=== PATIENT | female | born 1980 | race Caucasian/White ===

== ENCOUNTER 2019-04-19 18:29 | Emergency (ER) | payer MEDICAID, SELFPAY ==
[2019-04-19 18:30] VITALS: BP 123/68; PULSE 84; RESP 18; TEMP 36.6; O2SAT 96; BMI 36.0
--- NOTE | 2019-04-19 18:56 | CT_ITS ---
STUDY: CT ABDOMEN AND PELVIS WITH CONTRAST REASON FOR EXAM: Female, 39 years old. Abdominal pain RADIATION DOSAGE (If Supplied By Facility): CTDIvol = ( 26.22 ) mGy, DLP = ( 1126.21 ) mGycm TECHNIQUE: CT images were obtained from the dome of the diaphragm to the symphysis pubis without oral contrast. 100ML IV Isovue 300 was administered. Sagittal and coronal images were reconstructed. Individualized dose optimization techniques were used for this CT. COMPARISON: None. FINDINGS: The visualized lung bases are unremarkable. The visualized portions of the heart are within normal limits. Normal liver. Normal gallbladder and extrahepatic biliary system. Normal spleen. Normal pancreas. Normal bilateral adrenal glands. Normal right kidney. Normal left kidney. There is no intestinal obstruction. The colon is filled with a large amount of dehydrated stool, a finding associated with both dehydration and decreased colonic motility. Appendix is normal. Normal abdominal aorta. Normal inferior vena cava. Normal retroperitoneum. Normal urinary bladder. The right ovary is enlarged but difficult to evaluate due to the intrinsic limitations of CT technique. Normal abdominal wall. Normal osseous structures. CT/Abdomen/Pelvis W IV Cont ONLY IMPRESSION: 1. Unremarkable urinary system. 2. No acute abdominal findings. 3. Decreased colonic motility and/or dehydration or combination of the 2. Electronically Signed: Tiffanie Avery, at 20:46 EDT Tel , Service support ,
--- NOTE | 2019-04-19 19:00 | ED.VISSUMM ---
- ER Visit Summary Date of Service: 04/19/19 Chief Complaint: Foul-smelling urine and abdominal bloating for the last 3 years. History of Present Illness: The patient is a 39 F Pap smear history of prior D&C tubal ligation tonsillectomy. Patient is G4, P3 Ab0 AB 1 with that being a miscarriage. History of hypothyroidism. Since her last 3 years she has had chronically foul-smelling urine. Was treated for UTI. But states that this is been a chronic problem and never seems to get better. She also has been having abdominal bloating. Denies any weight loss. Denies any urinary retention. No melena. Last menstrual period was a week ago and states she has had tubal ligation. Physical Examination: Middle-aged female no acute distress. Vital signs are stable afebrile. H EENT exam unremarkable. Neck nontender. Lungs clear to auscultation bilaterally. Heart regular rhythm no murmur. Abdomen soft. Nontender. Nondistended. She appears to be mildly overweight. Normal bowel sounds. No peritoneal signs. No joint no reproducible tenderness. Carrying extra weight in her mid to lower abdomen. She states for her this is bloating. She is moving all 4 extremities. Neurovascular intact. She is trace edema bilaterally. Calves are nontender neurologically she is awake and alert. Back is nontender. Test Results: CBC shows a white count of 7. Hemoglobin 15. Electrolytes are normal. Gap of 4. Creatinine 1. Liver enzymes are normal lipase normal. Urine is negative except for 4+ bacteria but there is no whites, red cells or nitrates. A culture was sent. Serum test negative. CAT scan shows a normal appendix slightly enlarged right ovary and significant amounts of increased stool read both by myself and the radiologist. Emergency Department Course and Treatment: Patient with multiple complaints. He has a benign abdominal exam. Screening labs and a CAT scan of her abdomen will be obtained. Repeat exam patient is doing well 22:10 PM. Discussed all test results with her and family. They are going to be discharged to home. She will be treated with magnesium citrate for constipation. Her repeat abdominal exam is benign. Treatment Plan: Exam citrate. Stool softener. Follow-up with primary care doctor. Disposition: Discharge Impression: Abdominal pain secondary to constipation This note was generated with [employer] software. It may contain incorrect words, spelling, and punctuation that were not noted in review of the chart prior to signing ED Disposition - Plan for ED Patient: Referrals: [facility] Doctor,Out of [Primary Care Provider] -
[2019-04-19] MEDS: 0.9% Normal Saline 1,000 ML 125 ML IV (19:11)
[2019-04-19 19:24] LABS: Mucous, Urine 0 SEEN /hpf (<or=2+); Red Blood Cells-Urine 0 SEEN /hpf (0-5)
[2019-04-19 19:26] LABS: Color, Urine Yellow (Yellow); Glucose, Dipstick Normal (Normal); Ketone-Dipstick Negative (Negative); Leukocyte Esterase-Dipstick 100 /ul (Negative); Nitrite-Dipstick Negative (Negative); Occult Blood-Urine 10 /ul (Negative); Protein-Dipstick Negative (Negative); Urine Bilirubin Dipstick Negative (Negative); Urine Clarity Cloudy (Clear); Urine Urobilinogen Normal (Normal)
[2019-04-19] MEDS: Morphine 4 MG/ML Syringe IV (19:26)
[2019-04-19] MEDS: Ondansetron 4 MG/2 ML Vial IV (19:26)
[2019-04-19 19:32] LABS: Bacteria 4+ /hpf (None Seen); Hyaline Cast 0-5 SEEN /lpf (0-5); Squamous Epithelial Cells - UA 0-5 SEEN /hpf (5-10)
[2019-04-19 19:35] LABS: White Blood Cells 0-5 SEEN /hpf (0-5)
[2019-04-19 19:35] LABS: Absolute Lymphocyte Count 3.22 X10^3/ul (0.83-4.51); Absolute Neutrophil Count 3.3 X10^3/uL (2.0-7.7); Basophil# 0.04 X10^3/uL; Basophil% 0.5 % (0-1); Eosinophil# 0.55 X10^3/uL; Eosinophils% 7.1 % (0-5); Hematocrit 44.1 % (37-47); Hemoglobin 15.2 g/dl (12.0-15.0); Lymphocyte # 3.22 X10^3/ul (4.0); Lymphocyte % 41.8 % (19-41); Mean Corp Hgb Conc 34.5 g/gl (32-36); Mean Corpuscular Hgb 29.6 pg (27.0-32.0); Mean Corpuscular Volume 85.8 fL (81-99); Mean Platelet Vol. 9.6 fl (6.2-12.0); Monocyte# 0.57 X10^3/uL; Monocyte% 7.4 % (0-10); Neutrophil # 3.31 X10^3/uL (2.7-7.7); Neutrophil % 43.1 % (47-70); POSITIVE COUNT NO; POSITIVE DIFFERENTIAL NO; POSITIVE MORPHOLOGY NO; Platelet Count 207 K/mm3 (150-450); RBC Distribution Width CV 13.9 % (11.6-14.6); RBC Distribution Width SD 43.2 fl (35.1-43.9); Red Blood Count 5.14 M/mm3 (4.2-5.4); White Blood Count 7.7 K/mm3 (4.4-11.0)
[2019-04-19 20:01] LABS: AST(SGOT) 24 U/L (15-37); Alanine Aminotransfer ALT/SGPT 25 U/L (13-56); Albumin, Serum 3.9 g/dL (3.2-5.0); Alkaline Phosphatase 59 U/L (45-117); Anion Gap 4 (5-15); BUN 20 mg/dL (7-18); BUN/Creat Ratio 19.8 RATIO (10-20); Bilirubin, Direct 0.05 mg/dL (0.00-0.30); Calcium,Total 8.7 mg/dL (8.5-10.1); Chloride 105 mmol/L (98-107); Creatinine, Serum 1.01 mg/dL (0.55-1.02); EST Glomerular Filtration Rate 65 mL/min (>60); Est Glom Filt Rate - Afr Amer 78 mL/min (>60); Estimated Creatinine Clearance 63.94 ml/min; Globulin 2.9 g/dL (2.2-4.2); Glucose 94 mg/dL (74-106); Lipase 105 U/L (73-393); Potassium 4.7 mmol/L (3.5-5.1); Protein, Total 6.8 g/dL (6.4-8.2); Sodium Level 135 mmol/L (136-145)
[2019-04-19 20:07] LABS: Internal QC Validated? YES +Cl - CLEAR BKGD; Pregnancy, Serum, hCG Quali. NEGATIVE Negative
--- NOTE | 2019-04-19 20:56 | ED.RN ---
SPOKE WITH DR. MONACO ABOUT PT REQUESTING MORE PAIN MEDICATION. DR. MONACO STATES HE WILL GO SPEAK WITH HER. NO NEW ORDERS GIVEN AT THIS TIME.
[2019-04-19 21:17] VITALS: BP 124/75; PULSE 74; RESP 18; O2SAT 97
--- NOTE | 2019-04-19 22:13 | ED.DEP ---
ED Disposition - Plan for ED Patient: Disposition: Home or Assisted Living Instructions: CONSTIPATION (Adult) Referrals: [facility],Out of [Primary Care Provider] - 1-2 Weeks Additional Instructions: Magnesium citrate to help with the constipation. Plenty of fluids, prune juice, fruits, vegetables and fiber.
[2019-04-19] MEDS: Magnesium Citrate 300 ML PO (22:19)
[2019-04-19 22:20] VITALS: RESP 16
== END 2019-04-19 22:21 | disposition home or self-care (01) ==
PROVIDERS: Emergency Provider Emergency Medicine
DX: K59.00 Constipation, unspecified (principal); R10.9 Unspecified abdominal pain; R60.0 Localized edema; N83.8 Other noninflammatory disorders of ovary, fallopian tube and broad ligament; R11.2 Nausea with vomiting, unspecified; R19.7 Diarrhea, unspecified; R30.0 Dysuria; R82.998 Other abnormal findings in urine; E03.9 Hypothyroidism, unspecified; J45.909 Unspecified asthma, uncomplicated; G40.909 Epilepsy, unspecified, not intractable, without status epilepticus; Z87.440 Personal history of urinary (tract) infections; Z79.899 Other long term (current) drug therapy; Z72.0 Tobacco use
CPT/HCPCS: 74177; 80048; 80076; 81001; 83690; 84703; 85025; 87086; 87088; 87186; 96361; 96374; 96375; 99283; J7030; Q9967; J2405

== ENCOUNTER 2019-05-16 15:15 | Emergency (ER) | payer MEDICAID, SELFPAY ==
[2019-05-16 15:17] VITALS: BP 115/76; PULSE 88; RESP 14; TEMP 36.7; O2SAT 97; BMI 32.5
[2019-05-16] MEDS: Morphine 4 MG/ML Syringe IM (16:11)
--- NOTE | 2019-05-16 16:20 | RAD_ITS ---
STUDY: X-RAY - LUMBAR SPINE REASON FOR EXAM: Female, 39 years old. Low back pain TECHNIQUE: 3 view(s) of the lumbar spine were obtained. COMPARISON: None FINDINGS: Normal lumbar lordosis. There is no substantial scoliosis. There is a normal alignment of the vertebrae. Normal vertebral bodies and endplates. Normal disc space heights. The soft tissue structures are unremarkable. RAD/Lumbar Spine 2 or 3 Views IMPRESSION: Normal x-ray examination of the lumbar spine. Electronically Signed: Alejo Roger DO at 16:58 EDT Tel , Service support ,
--- NOTE | 2019-05-16 16:27 | ED.DCSUM_ITS ---
- ER Visit Summary Date of Service: 05/16/19 Chief Complaint: Back pain History of Present Illness: The patient is a 39 F who presents with back pain for the past 2 months. Patient states the pain is over her lower back. Patient states she has a history of chronic lower extremity pain. Patient states that her pain in her back is gotten progressively worse. Patient describes as aching. Patient states her pain is worse with movement and ambulation. Patient states nothing seems to help. Patient admits to occasional intermittent numbness and tingling in her lower legs. Patient denies any abdominal pain. Patient denies any bowel or bladder changes. Patient denies any saddle anesthesia. Physical Examination: Vital signs are stable. Patient is afebrile. Patient is in no acute distress. Musculoskeletal exam reveals tenderness over the lower lumbar spine and paraspinal muscles. There is no bony crepitance or step-off. There is no edema or ecchymosis noted. There is some mild tenderness over the right hip. There is no deformity. There is good range of motion of the right hip. There is no calf tenderness noted. Pedal pulses are equal bilaterally. Strength is 5/5 bilateral knee upper and lower extremities. There are no sensory deficits noted. Test Results: X-rays of the lumbar spine were obtained. There is no acute fracture or dislocation noted. There is no spondylolisthesis or spondylolysis noted. Emergency Department Course and Treatment: Patient was given an injection of morphine here. Patient noted some redness to her chest after this. Patient was offered Benadryl but does not want to take that because she says it makes her restless. Patient was instructed to follow-up with her primary care physician in 3 to 5 days. Patient understood and was agreeable with the plan. All questions were answered. Disposition: Discharge home Impression: Acute low back pain This note was generated with [employer] dictation software. It may contain incorrect words, spelling, and punctuation that were not noted in review of the chart prior to signing ED Disposition - Plan for ED Patient: Disposition: Home or Assisted Living Diagnosis: Acute low back pain Instructions: BACK PAIN (Acute or Chronic) Referrals: [facility] Doctor,Out of [Primary Care Provider] - 5-7 Days
== END 2019-05-16 17:25 | disposition home or self-care (01) ==
PROVIDERS: Emergency Provider Emergency Medicine
DX: M54.5 Low back pain (principal); E03.9 Hypothyroidism, unspecified; M19.90 Unspecified osteoarthritis, unspecified site; G40.909 Epilepsy, unspecified, not intractable, without status epilepticus; Z79.899 Other long term (current) drug therapy; Z72.0 Tobacco use
CPT/HCPCS: 72100; 96372; 99282

== ENCOUNTER 2019-06-07 15:44 | Emergency (ER) | payer MEDICAID, SELFPAY ==
[2019-06-07 15:45] VITALS: BP 123/89; PULSE 96; RESP 17; TEMP 36.4; O2SAT 99; BMI 34.7
--- NOTE | 2019-06-07 16:07 | EKG12_ITS ---
Test Reason : CP Blood Pressure : / mmHG Vent. Rate : 079 BPM Atrial Rate : 079 BPM P-R Int : 140 ms QRS Dur : 076 ms QT Int : 358 ms P-R-T Axes : 022 038 022 degrees QTc Int : 410 ms Normal sinus rhythm with sinus arrhythmia Normal ECG Confirmed by EMIL GOSS, MILENA ([id number]), supervising editor news reel FANNIE RAMIREZ ([id number]) on 06/10/2019 11:04:24 AM Referred By: Confirmed By:MILENA STEIN MD
[2019-06-07] MEDS: 0.9% Normal Saline 1,000 ML 1000 ML IV (16:21)
--- NOTE | 2019-06-07 16:21 | ED.VIS.CHEST ---
History of Present Illness Chief Complaint: Chest Other Informant: Patient Onset: Month(s) - 3 months Activity at onset: Light Activity Timing: Continuous Quality: Sharp, Stabbing Location: Right Chest, Left Chest Current Severity: Severe Maximum Severity: Severe Worsened By: Movement of Arm, Movement of Torso, Palpation, Breathing Relieved By: Nothing Associated Symptoms: Dyspnea, Cough Narrative: 39-year-old female history of seizures, migraine headaches, fibromyalgia, presents to the emergency department with bilateral chest pain. Is been ongoing for 3 months. It is constant. He is it is sharp. Worse with movement palpation coughing and deep breathing. It is not exertional. She is not short of breath. She is not lightheaded or dizzy. She has no cough or hemoptysis. No recent travel or surgery. No history of DVT or PE. No leg pain or swelling. She is not on oral control. She is currently being worked up as an outpatient for lupus and other similar disorders. She has been having this pain now for a few months recently placed on prednisone by her family physician without improvement. Prior Similar Symptoms: Yes Recent Illness/Hospitalization: No Past Medical History - Allergies and Home Meds Allergies/Adverse Reactions: Allergies ketorolac [From Toradol] Allergy (Verified 06/07/19 15:44) Rash metoclopramide [From Reglan] Allergy (Verified 06/07/19 15:44) Other RESTLESS promethazine [From Phenergan] Allergy (Verified 06/07/19 15:44) Other RESTLESS Sulfa (Sulfonamide Antibiotics) Allergy (Verified 06/07/19 15:44) Rash Primary Care Physician: [facility] ,Out of [Primary Care Provider] - Prior records reviewed: Yes Past Medical History: - - Migraines, seizures, fibromyalgia, hypothyroidism Surgical History: tonsillectomy Smoking Status: Current every day smoker Review of Systems All systems negative except as indicated General: Denies: Chills, Fever Cardiovascular: Reports: Chest pain Physical Exam Vital Signs/Narrative: Vital Signs Temp Pulse Resp BP Pulse Ox 06/07/19 15:45 97.6 F L 96 17 123/89 H 99 Inital Vital Signs reviewed: Yes General: Well nourished, Well developed, No Acute Distress Head: Normocephalic, Atraumatic Eyes: Perrl, EOMI ENT: Moist mucous membranes Neck: Supple, Nontender Cardiovascular: Regular rate, Regular rhythm Respiratory: No distress, CTA bilaterally, Chest tenderness - Reproducible musculoskeletal chest pain bilateral chest wall superior and above both breasts. Breasts are normal in appearance. No crepitus skin changes or step-off deformities are palpated. Abdomen: Soft, Nontender, Nondistended, Normal bowel sounds, No masses Back: Nontender, Normal Inspection Extremities: Nontender, No edema Skin: Normal color, No rash Neurological: Alert, Oriented x3 Diagnostic/Tx/Re-eval Chest X-Ray - ED: 2 View, Read by ED Physician, No Acute Disease - Rhythm Strip Rhythm Strip: Sinus Rhythm Rate: 80 Ectopy: None - EKG Initial EKG Interpretation: Sinus Rhythm, No Acute Injury Pattern Prior: No Prior - Medical Decision Making EKG was normal sinus rhythm rate of [address] segment or T wave changes. Normal intervals no ectopy. No previous EKG is available for comparison. CBC, BMP unremarkable. Troponin is negative. D-dimer negative. ESR negative. Chest x-ray negative, interpreted by the emergency physician. Patient heart score is 1. She is had this pain for 3 months. At this time we feel she is safe for discharge. We feel it is likely musculoskeletal in nature. She will continue to follow-up as an outpatient with her family physician as well as rheumatology for further work-up for possible etiologies. She is agreeable with plan of care and all questions answered. Discharged ED Disposition - Plan for ED Patient: Disposition: Home or Assisted Living Diagnosis: Musculoskeletal chest pain Instructions: CHEST PAIN, NonCardiac Prescriptions: Hydrocodone Bitart/Apap 5-325 [[place] 5MG-325MG] 1 tab PO Q6H PRN PRN 3 Days #10 tab PRN Reason: Pain Prescription Printed Referrals: [facility] Doctor,Out of [Primary Care Provider] -
--- NOTE | 2019-06-07 16:40 | RAD_ITS ---
STUDY: X-RAY CHEST REASON FOR EXAM: Female, 39 years old. Sharp pain chest pain TECHNIQUE: PA and lateral views of the chest. COMPARISON: Lung bases April 19, [address] scan of the abdomen and pelvis FINDINGS: There is minimal interstitial prominence in the right middle lobe. This is similar to the diesel electrician image for the April 19, 2019 CT scan abdomen. There is no demonstrated pleural abnormality. Normal size heart. Normal mediastinum and viktoria. Normal visualized pulmonary arteries. Normal visualized aortic arch and descending thoracic aorta. Normal visualized thoracic spine. Normal visualized ribs, clavicles, and shoulders. There is no demonstrated abnormality of the visualized soft tissue structures of the upper abdomen. RAD/Chest PA and Lateral IMPRESSION: No demonstrated acute cardiopulmonary process. Electronically Signed: Evy Parra MD at 17:06 EDT Tel , Service support ,
[2019-06-07 16:48] LABS: Absolute Lymphocyte Count 3.02 X10^3/uL (0.83-4.51); Basophil# 0.06 X10^3/uL; Basophil% 0.7 % (0-1); Eosinophil# 0.43 X10^3/uL; Eosinophils% 5.3 % (0-5); Hematocrit 45.1 % (37-47); Hemoglobin 15.4 g/dL (12.0-15.0); Lymphocyte # 3.02 X10^3/ul (4.0); Lymphocyte % 37.3 % (19-41); Mean Corp Hgb Conc 34.1 g/dL (32-36); Mean Corpuscular Hgb 30.1 pg (27.0-32.0); Mean Corpuscular Volume 88.3 fL (81-99); Mean Platelet Vol. 9.2 fl (6.2-12.0); Monocyte# 0.55 X10^3/uL; Monocyte% 6.8 % (0-10); NRBC Flagged by Analyzer 0 % (0-5); Neutrophil % 49.5 % (47-70); Platelet Count 256 K/mm3 (150-450); RBC Distribution Width CV 12.8 % (11.6-14.6); RBC Distribution Width SD 41.6 fl (35.1-43.9); Red Blood Count 5.11 M/mm3 (4.2-5.4); White Blood Count 8.1 K/mm3 (4.4-11.0)
[2019-06-07 16:54] LABS: Internal QC Validated? YES +Cl - CLEAR BKGD; Pregnancy, Serum, hCG Quali. NEGATIVE Negative
[2019-06-07 16:56] LABS: D-Dimer Quantitative (DVT/PE) < 0.27 FEU/ug/m (0.27-0.49)
[2019-06-07 16:57] LABS: Erythrocyte Sedimentation Rate 3 mm/hr (0-20)
[2019-06-07 17:00] LABS: Anion Gap 6 (5-15); BUN 11 mg/dL (7-18); BUN/Creat Ratio 11.7 RATIO (10-20); Calcium,Total 8.3 mg/dL (8.5-10.1); Chloride 109 mmol/L (98-107); Creatinine, Serum 0.94 mg/dL (0.55-1.02); EST Glomerular Filtration Rate 70 mL/min (>60); Est Glom Filt Rate - Afr Amer 85 mL/min (>60); Glucose 114 mg/dL (74-106); Potassium 3.6 mmol/L (3.5-5.1); Sodium Level 140 mmol/L (136-145)
--- NOTE | 2019-06-07 17:07 | ED.DCSUM_ITS ---
- ER Visit Summary Date of Service: 06/07/19 Chief Complaint: [Chest wall pain] History of Present Illness: The patient is a 39 F [presents to the emergency department with complaint of chest wall pain for the last 3 months or so. Patient describes diffuse soreness and swelling of her chest wall. Patient states the pain is worse with movement and deep breath. She denies any real shortness of breath. She denies any fever. She denies any trauma to her chest wall. She denies recent travel or surgery. Patient does state that she is currently being worked up for autoimmune disorders such as lupus. Patient denies any real cough.] Physical Examination: [HEENT-PERRLA, EOMI. Cranial nerves II through XII grossly intact. TMs clear. Mucous membranes moist. No adenopathy. Cardiovascular-regular rate and rhythm without murmur or ectopy Lungs-clear to auscultation, chest wall stable without crepitus or subcu emphysema. Chest wall-tender to out on palpation. Patient does have a soft tissue mass over the left lower ribs that I feel is consistent with a lipoma as it is in the subcutaneous tissue and freely movable and slightly tender to palpation measuring approximately 2 cm in diameter. Abdomen-normoactive bowel sounds, soft, nontender, no rebound or rigidity, no p eritoneal signs. Extremities-intact ?4, normal range of motion, normal pulses, atraumatic] Test Results: [CBC with a normal. Chemistries unremarkable. D-dimer was normal. hCG was negative. Chest x-ray was normal. Troponin is less than 0.015. Sed rate was normal at 3.] Emergency Department Course and Treatment: [] Treatment Plan: [Advised to use anti-inflammatory such as naproxen or ibuprofen. Patient will be given a prescription for [place] for pain. Patient advised to follow-up with her primary care physician within next 3 to 5 days.] Disposition: [Discharged home in stable condition] Impression: [Chest wall pain] This note was generated with [employer] dictation software. It may contain incorrect words, spelling, and punctuation that were not noted in review of the chart prior to signing ED Disposition - Plan for ED Patient: Disposition: Home or Assisted Living Diagnosis: Musculoskeletal chest pain Instructions: CHEST PAIN, NonCardiac Prescriptions: Hydrocodone Bitart/Apap 5-325 [[place] 5MG-325MG] 1 tab PO Q6H PRN PRN 3 Days #10 tab PRN Reason: Pain Prescription Printed Referrals: [facility] Doctor,Out of [Primary Care Provider] -
== END 2019-06-07 17:39 | disposition home or self-care (01) ==
PROVIDERS: Emergency Provider Physician Assistant Medical
DX: R07.89 Other chest pain (principal); G40.909 Epilepsy, unspecified, not intractable, without status epilepticus; G43.909 Migraine, unspecified, not intractable, without status migrainosus; M79.7 Fibromyalgia; E03.9 Hypothyroidism, unspecified; Z79.899 Other long term (current) drug therapy; F17.200 Nicotine dependence, unspecified, uncomplicated
CPT/HCPCS: 71046; 80048; 84484; 84703; 85025; 85379; 85652; 93005; 96360; 99284; J7030; A4216

== ENCOUNTER → 2019-07-28 14:56 | Outpatient (CLI) | payer MEDICAID, SELFPAY ==
--- NOTE | 2019-07-28 14:59 | RAD_ITS ---
STUDY: X-RAY - LUMBAR SPINE REASON FOR EXAM: Female, 39 years old. Back pain for 17 years. TECHNIQUE: 3 view(s) of the lumbar spine were obtained. COMPARISON: None FINDINGS: Normal lumbar lordosis. There is no substantial scoliosis. There is a normal alignment of the vertebrae. Normal vertebral bodies and endplates. Normal disc space heights. There is no evidence of acute fracture or loss of vertebral axial height. The soft tissue structures are unremarkable. RAD/Lumbar Spine 2 or 3 Views IMPRESSION: Normal x-ray examination of the lumbar spine. Electronically Signed: Juan Aragon DO at 16:09 EDT Tel [phone], Service support ,
--- NOTE | 2019-07-28 15:05 | RAD_ITS ---
STUDY: X-RAY - CERVICAL SPINE REASON FOR EXAM: Female, 39 years old. Neck pain for 17 years. No specific injury. TECHNIQUE: 3 view(s) of the cervical spine were obtained. COMPARISON: None FINDINGS: Normal anterior atlantoaxial articulation. Normal odontoid process. There is straightening of the normal cervical lordosis. Normal vertebral bodies and endplates. Normal disc space heights. There is no evidence of acute fracture or loss of vertebral axial height.. There is normal alignment of the vertebra. The soft tissue structures are unremarkable. RAD/Cerv Spine 2 or 3 Views IMPRESSION: Straightened cervical lordosis which may be positional or due to muscular strain. There is no other abnormality of the cervical spine. Electronically Signed: Juan Aragon DO at 16:11 EDT Tel [phone], Service support ,
== END ==
PROVIDERS: Family Provider Internal Medicine; PCP Internal Medicine; Referring Provider Anesthesiology Pain Medicine; Visit Provider Anesthesiology Pain Medicine
DX: M54.2 Cervicalgia (principal); M54.5 Low back pain
CPT/HCPCS: 72040; 72100

== ENCOUNTER 2019-10-10 11:40 | Emergency (ER) | payer MEDICAID, SELFPAY ==
[2019-10-10 11:41] VITALS: BP 119/91; PULSE 99; RESP 18; TEMP 36.4; O2SAT 98; BMI 33.6
--- NOTE | 2019-10-10 12:37 | ED.VIS.LOWEX ---
History of Present Illness Chief Complaint: Lower Extremity Injury Informant: Patient Occurred: Hours - 1 Context: Sudden Onset - while walking/helping to carry Timing: Continuous Quality of Pain: Aching - and sore Location: both knees anteriorly Current Severity: Moderate Maximum Severity: Severe Worsened by: bending knees, walking Relieved by: remaining still Associated Symptoms: Negative for: Parasthesia, Weakness, Loss of Funtion Narrative: Patient shows me prior x-ray results that show bilateral resting patellar lateral tilt. Today as she was helping to lift something she states simultaneously both of her patella moved laterally, and then crackled back into place, painfully. She describes a history of recurrent subluxation of both patella, and had that happen an hour prior to arrival. She states when this is happened before, she typically has 3 to 4 days of a lot of bilateral knee soreness and is asking for something to help her get through that period of time. She had a GI bleed 3 months ago and states she was advised to avoid all NSAIDs until told otherwise, she states [place] has helped with this in the past. She was prescribed braces for both knees, but when they arrived they were too big and now she is awaiting replacements. She is following with Dr. Nguyễn locally. She is to get physical therapy after the braces come in. - Past Medical History (1) ADD (attention deficit disorder) Status: Chronic (2) Anxiety Status: Chronic Past Medical History - Allergies and Home Meds Allergies/Adverse Reactions: Allergies ketorolac [From Toradol] Allergy (Verified 10/10/19 11:43) Rash metoclopramide [From Reglan] Allergy (Verified 10/10/19 11:43) Other RESTLESS promethazine [From Phenergan] Allergy (Verified 10/10/19 11:43) Other RESTLESS Sulfa (Sulfonamide Antibiotics) Allergy (Verified 10/10/19 11:43) Rash Primary Care Physician: Michelle Serrano MD [Primary Care Provider] - Past Medical History: None Surgical History: tonsillectomy Smoking Status: Current every day smoker Drugs: None Review of Systems Musculoskeletal: Reports: Extremity Pain. Denies: Neck pain, Back pain, Swelling Skin: Denies: Rash, Wounds Neurological: Denies: Headache, Weakness, Numbness Physical Exam Vital Signs/Narrative: Vital Signs Temp Pulse Resp BP Pulse Ox 01/03/20 11:41 97.6 F L 99 18 119/91 H 98 Inital Vital Signs reviewed: Yes - Extremity Exam Right Knee: - - Tenderness anteriorly. No effusion. All ligaments stable with short endpoints and no significant pain or laxity on stressing.. Negative for: Limited ROM Left Knee: - - Tenderness anteriorly. No effusion. All ligaments stable with short endpoints and no significant pain or laxity on stressing.. Negative for: Limited ROM General: Well nourished, Well developed, - - NAD Skin: Normal color, No rash, No Trauma Neurological: Alert, Oriented x3, Cranial nerves II-XII grossly intact, Normal Strength, Normal Sensation Psychological: Normal affect, Normal Mood Diagnostic/Tx/Re-eval - Medical Decision Making Suspect patient had subluxation of her patella bilaterally. No sign of a dislocation or unstable knee, no significant bony tenderness, it is mostly at the lateral aspect of the anterior knee joints. We will give her a short prescription for [place], she has no active prescriptions or recent ones in the past 2 months. ED Disposition - Plan for ED Patient: Disposition: Home or Assisted Living Diagnosis: Recurrent subluxation of patella, left knee, Recurrent subluxation of patella, right knee Instructions: Patellar Dislocation / Subluxation Prescriptions: Hydrocodone Bitart/Apap 5-325 [[place] 5MG-325MG] 1 tablet PO Q6H PRN PRN 3 Days #12 tablet PRN Reason: Pain Transmission Status: Sent to [id number] Referrals: Michelle Serrano MD [Primary Care Provider] - Zen Nguyễn DO [STAFF PHYSICIAN] - 3-5 Days if not improving
[2019-10-10 12:50] VITALS: RESP 18
== END 2019-10-10 12:55 | disposition home or self-care (01) ==
PROVIDERS: Emergency Provider Emergency Medicine; Family Provider Internal Medicine; PCP Internal Medicine
DX: M22.11 Recurrent subluxation of patella, right knee (principal); M22.12 Recurrent subluxation of patella, left knee; F98.8 Other specified behavioral and emotional disorders with onset usually occurring in childhood and adolescence; F41.9 Anxiety disorder, unspecified; F17.200 Nicotine dependence, unspecified, uncomplicated
CPT/HCPCS: 99282

== ENCOUNTER 2019-11-04 11:58 | Emergency (ER) | payer MEDICAID, SELFPAY ==
[2019-11-04 11:59] VITALS: BP 127/87; PULSE 100; RESP 18; TEMP 36.6; O2SAT 100; BMI 34.0
--- NOTE | 2019-11-04 12:25 | ED.VISSUMM ---
- ER Visit Summary Date of Service: 11/04/19 Chief Complaint: Cough with yellow sputum History of Present Illness: The patient is a 39 F history of asthma, hypothyroidism, seizures and prior GI bleed. Patient states she is in physical therapy today and thinks she dislocated her right kneecap which they popped back in place. States that she has had a cough for several days of yellowish sputum. No fever or chills. Patient also states she is having some mild right knee pain she was in physical therapy today and dislocated her kneecap which she is done before. They manually move the back in place. Physical Examination: EENT exam unremarkable. TMs normal. Posterior pharynx moist. No erythema or exudate. No trouble swallowing. No stridor. Neck nontender no lymphadenopathy. Trachea midline. Lungs dry cough. Expiratory wheezing. No rales or rhonchi. Equal symmetrical. Heart regular rhythm rate about 100 no murmur. Abdomen soft nontender normal bowel sounds no peritoneal signs. Extremities moves all 4. Calves are nontender without edema or cords. Neurologically patient is awake alert with no focal motor deficits. She does complain of mild right knee discomfort. There is no significant effusion. Currently there is no dislocation of the kneecap. She is able to flex and extend her right knee. Tendons are intact as are the ligaments. Right foot has normal dorsi plantarflexion, motor strength and sensation. Test Results: Chest x-ray AP lateral view read both myself and the radiologist shows no acute abnormality. Emergency Department Course and Treatment: History and exam are consistent with acute bronchitis with bronchospasm. Patient will be discharged home on prednisone 40 g a day for up to 7 days. She already has an inhaler. [place] p.o. 1 because of her knee discomfort. Treatment Plan: Stop smoking. Prednisone 40 g a day for up to a week. Use your inhaler. Follow-up if not improving or return if worse. Ice to her knee. Disposition: Discharge Impression: Acute viral bronchitis Bronchospasm Tobacco abuse Right knee pain secondary to reported patella dislocation that has resolved This note was generated with [employer] software. It may contain incorrect words, spelling, and punctuation that were not noted in review of the chart prior to signing ED Disposition - Plan for ED Patient: Referrals: Michelle Serrano MD [Primary Care Provider] -
--- NOTE | 2019-11-04 12:26 | RAD_ITS ---
STUDY: X-RAY CHEST REASON FOR EXAM: Female, 39 years old. COUGH AND WHEEZING. TECHNIQUE: PA and lateral views of the chest. COMPARISON: Comparison is made with prior study dated June 07, 2019. FINDINGS: Hyperinflation. Scattered calcified granulomas. The lungs are clear. There is no demonstrated pleural abnormality. Normal size heart. Normal mediastinum and viktoria. Normal visualized pulmonary arteries. Normal visualized aortic arch and descending thoracic aorta. Normal visualized thoracic spine. Normal visualized ribs, clavicles, and shoulders. There is no demonstrated abnormality of the visualized soft tissue structures of the upper abdomen. RAD/Chest PA and Lateral IMPRESSION: No acute abnormality is seen. Electronically Signed: Shamar Colvin, at 12:52 EST , Service support ,
[2019-11-04] MEDS: HYDROcodone Bitartrate/Apap 5/325 Tablet PO (12:50)
[2019-11-04] MEDS: predniSONE 20 MG Tablet 60 MG PO (12:50)
[2019-11-04 12:52] VITALS: BP 127/87; PULSE 100; RESP 18; TEMP 36.6; O2SAT 100
--- NOTE | 2019-11-04 13:16 | ED.DEP ---
ED Disposition - Plan for ED Patient: Disposition: Home or Assisted Living Instructions: BRONCHITIS with Wheezing (Adult) Prescriptions: Prednisone [Deltasone] 40 mg PO DAILY 7 Days tab Prescription Printed Referrals: Michelle Serrano MD [Primary Care Provider] - 3-5 Days if not improving Additional Instructions: Use your inhaler as needed. Prednisone 40 mg a day for 1 week. Absolutely stop smoking !! Ice to your knee. Tylenol for pain. Follow-up if not improving.
[2019-11-04 13:25] VITALS: RESP 16
--- NOTE | 2019-11-04 13:25 | ED.RN ---
REVIEWED D/C INSTRUCTIONS, FOLLOW UP CARE, PRESCRIPTION, AND S/S THAT WOULD WARRANT A RETURN TO THE ED WITH PT. PT VERBALIZED AN UNDERSTANDING AND DENIES FURTHER QUESTIONS FOR THIS RN. PT SKIN P/W/D, RESP EVEN AND UNLABORED, PT A&O X 3, NO DISTRESS NOTED. PT AMBULATED OUT OF ED, GAIT STEADY.
== END 2019-11-04 13:26 | disposition home or self-care (01) ==
PROVIDERS: Emergency Provider Emergency Medicine; PCP Internal Medicine
DX: J20.8 Acute bronchitis due to other specified organisms (principal); M22.01 Recurrent dislocation of patella, right knee; E03.9 Hypothyroidism, unspecified; G40.909 Epilepsy, unspecified, not intractable, without status epilepticus; F17.200 Nicotine dependence, unspecified, uncomplicated
CPT/HCPCS: 71046; 99284

== ENCOUNTER 2019-12-17 18:12 | Emergency (ER) | payer MEDICAID, SELFPAY ==
[2019-12-17 18:14] VITALS: BP 133/89; PULSE 108; RESP 20; TEMP 36.6; O2SAT 98; BMI 37.0
--- NOTE | 2019-12-17 19:29 | ED.VIS.GEN ---
History of Present Illness Chief Complaint: Lower Extremity Injury Informant: Patient Onset: - - Acute on chronic Narrative: Patient presents secondary to bilateral knee pain. She has chronic laxity in her patella bilaterally. She follows with Dr. Nguyễn. She is currently in physical therapy but states it is really not helping. She is helping her mother with some chores around the house and doing increased lifting. She now reports increased pain and swelling over the anterior knees. There is no direct trauma to the knee. She is not able to take anti-inflammatories secondary to a prior GI bleed. She is been taking Tylenol without improvement. I did check an oars report. Last prescription for [place] was November 26 for a short supply. - Past Medical History (1) Asthma Status: Chronic (2) Seizures Status: Chronic (3) Migraine Status: Chronic (4) ADD (attention deficit disorder) Status: Chronic (5) Anxiety Status: Chronic Past Medical History - Allergies and Home Meds Allergies/Adverse Reactions: Allergies ketorolac [From Toradol] Allergy (Verified 12/17/19 18:18) Rash metoclopramide [From Reglan] Allergy (Verified 12/17/19 18:18) Other RESTLESS prochlorperazine [From Compazine] Allergy (Verified 12/17/19 18:18) Rash promethazine [From Phenergan] Allergy (Verified 12/17/19 18:18) Other RESTLESS Sulfa (Sulfonamide Antibiotics) Allergy (Verified 12/17/19 18:18) Rash NSAIDS (Non-Steroidal Anti-Inflamma Adverse Reaction (Verified 12/17/19 18:18) Upset Stomach Primary Care Physician: Michelle Serrano MD [Primary Care Provider] - Prior records reviewed: Yes Surgical History: tonsillectomy Smoking Status: Current every day smoker Review of Systems General: Denies: Chills, Fever Eyes: Denies: Visual changes - bilaterally ENT: Denies: Bilateral ear pain Cardiovascular: Denies: Chest pain Respiratory: Denies: Dyspnea, Cough Gastrointestinal: Denies: Abdominal pain Musculoskeletal: Reports: Swelling, Extremity Pain Skin: Denies: Rash Neurological: Denies: Headache Allergy: Denies: Uticaria Physical Exam Vital Signs/Narrative: Vital Signs Temp Pulse Resp BP Pulse Ox 12/17/19 18:14 97.8 F 108 H 20 H 133/89 H 98 Inital Vital Signs reviewed: Yes General: Well nourished, Well developed ENT: Moist mucous membranes Neck: Supple Cardiovascular: Regular rate, Regular rhythm Respiratory: No distress, CTA bilaterally Abdomen: Soft Extremities: - - Mild tenderness outpatient over the patellar region anteriorly on both right and left knees. She has mild tenderness along the joint lines. No obvious effusion. Good range of motion. Strong distal pulses are noted. No calf tenderness or edema. Diagnostic/Tx/Re-eval Patient presents secondary to bilateral knee pain due to increased activity lately. She is unable to take anti-inflammatories. I did check an oars report. Last prescription for [place] was from mid November. She begin a prescription for 4 tabs only. I advised her that we cannot write narcotics from the emergency room for a chronic medical problem. She is to follow with her primary care physician and Dr. Nguyễn as scheduled. ED Disposition - Plan for ED Patient: Disposition: Home or Assisted Living Diagnosis: Knee pain Prescriptions: Hydrocodone Bitart/Apap 5-325 [[place] 5MG-325MG] 1 tablet PO Q6H PRN PRN 3 Days #4 tablet PRN Reason: Pain Transmission Status: Received by [id number] Referrals: Michelle Serrano MD [Primary Care Provider] - 5-7 Days
[2019-12-17] MEDS: HYDROcodone Bitartrate/Apap 5/325 Tablet PO (19:45)
== END 2019-12-17 19:46 | disposition home or self-care (01) ==
PROVIDERS: Emergency Provider Emergency Medicine; PCP Internal Medicine
DX: M25.562 Pain in left knee (principal); M25.561 Pain in right knee; G40.909 Epilepsy, unspecified, not intractable, without status epilepticus; J45.909 Unspecified asthma, uncomplicated; F41.9 Anxiety disorder, unspecified; F98.8 Other specified behavioral and emotional disorders with onset usually occurring in childhood and adolescence; F17.200 Nicotine dependence, unspecified, uncomplicated
CPT/HCPCS: 99283

== ENCOUNTER 2020-08-23 20:23 | Emergency (ER) | payer MEDICAID, SELFPAY ==
[2020-08-23 20:24] VITALS: BP 148/97; PULSE 102; RESP 16; TEMP 36.3; O2SAT 98; BMI 38.6
--- NOTE | 2020-08-23 21:06 | ED.DCSUM_ITS ---
- ER Visit Summary Date of Service: 08/23/20 Chief Complaint: Back pain History of Present Illness: The patient is a [address] Serrano. She reports that she has back pain began approximately 1 month ago. She does also report that she has chronic bone pain. She denies any recent trauma. No fal l, MVA, or change in activity. She reports is an aching, throbbing pain instead of 10 worsened 710 currently. Is worsened by movement. She states that is not relieved by [place], heat, ice, tizanidine, or elevation. States that she has aching in her thighs bilaterally. But there is no radiation of numbness into her legs. She denies any numbness or weakness in her legs. Denies any problems with her bowels or her bladder. She denies any groin numbness. Physical Examination: Vitals: Stable. Afebrile. General: A&O x 3. NAD. Cardiovascular exam: Regular rate and rhythm, no murmur, rub or gallop. Respiratory exam: Clear to auscultation bilaterally. No wheezes or stridor. Abdominal exam: Soft, nontender, nondistended, normal bowel sounds. No peritoneal signs. Back: Diffuse moderate tenderness to palpation over the lumbar spine and the paraspinous musculature in the lumbar region. No point tenderness. Negative straight leg bilaterally. 5/5 DF, PF, EHL bilaterally. Normal sensation to light touch throughout. Extremity: No clubbing, cyanosis, or edema. Emergency Department Course and Treatment: An [facility] report was obtained which shows she is had 24 prescriptions for [place] and 2020. She has an active prescription for [place] presently. I discussed this with the patient. She ports that she just wants something for pain tonight. I do not think that treating her chronic pain with a dose opiates here is indicated. She refused Tylenol and ibuprofen. Treatment Plan: Patient will be discharged instructions to follow-up with her primary care physician for further evaluation and treatment of her chronic pain. The signs and symptoms of cauda equina syndrome were discussed and she is instructed to return for these. Disposition: To home in improved and stable condition. Impression: 1. Chronic back pain. This note was generated with [employer] software. It may contain incorrect words, spelling, and punctuation that were not noted in review of the chart prior to signing ED Disposition - Plan for ED Patient: Disposition: Home or Assisted Living Instructions: ED Back Pain Acute or Chronic Referrals: Michelle Serrano MD [Primary Care Provider] - 1-2 Days if not improving
== END 2020-08-23 21:15 | disposition home or self-care (01) ==
LOC: ED 21:08
PROVIDERS: Emergency Provider Emergency Medicine; PCP Internal Medicine
DX: M54.5 Low back pain (principal); G89.29 Other chronic pain; Z72.0 Tobacco use
CPT/HCPCS: 99282

== ENCOUNTER → 2021-03-04 11:51 | Outpatient (CLI) | payer MEDICAID, SELFPAY ==
[2021-03-04 14:27] LABS: HIV - WCH Non-Reactive (Nonreactive); Hepatitis B Surface Antigen Non-Reactive (Nonreactive); Hepatitis C Antibody Non-Reactive (Nonreactive); Syphilis Antibodies Non-reactive
[2021-03-07 05:06] LABS: Chlamydia By Nucleic Acid AMP Negative (Negative)
[2021-03-07 07:15] LABS: Gonococcus By Nucleic Acid AMP Negative (Negative)
[2021-03-09 14:12] LABS: HPV APTIMA, High Risk Negative (Negative)
== END ==
PROVIDERS: PCP Internal Medicine; Visit Provider Obstetrics & Gynecology
DX: Z12.4 Encounter for screening for malignant neoplasm of cervix (principal); Z11.3 Encounter for screening for infections with a predominantly sexual mode of transmission
CPT/HCPCS: 36415; 86703; 86780; 86803; 87340; 87491; 87591; 87624; 88175; G0145

== ENCOUNTER → 2021-04-21 12:51 | Outpatient (CLI) | payer MEDICAID, SELFPAY ==
--- NOTE | 2021-04-21 12:54 | BI_ITS ---
MAMMOGRAPHY - BILATERAL SCREENING REASON FOR EXAM: Female, 41 years old. Routine annual screening examination. PERTINENT HISTORY: Non-contributory. TECHNIQUE: Digital bilateral breast cherelle (3D mammographic acquisition) in the CC and MLO projections. 2-D mediolateral oblique (MLO) and craniocaudad (CC) views of both breasts were obtained. CAD: Full Field Digital Mammography with Computer Added Detection was performed. COMPARISON: None. Baseline examination. FINDINGS: Breast Composition: The breasts are heterogeneously dense, which may obscure small masses. There are no dominant masses or suspicious calcifications. Breast from a focal area of architectural distortion in the slightly upper lateral midportion of the right breast. The patient will be recalled for additional views including compression spot views in the mediolateral oblique and craniocaudad views. No other significant abnormalities are identified. BI/SCRN MAMM (CAD)W/CHERELLE BILAT IMPRESSION: Findings suggestive of a focal area of architectural distortion in the right breast as described. The patient will be recalled for additional views of the right breast. Recall Side: Right Breast ASSESSMENT CATEGORY: BIRADS Category 0: Incomplete. Need additional imaging evaluation. A letter regarding these results will be sent to the patient by the facility within 30 days. Approximately 10% of breast cancers are not detected by mammography. A normal mammogram should not delay biopsy of a clinically suspicious abnormality. [id number] Electronically Signed: Shamar Colvin MD at 13:49 EDT , Service support ,
== END ==
PROVIDERS: PCP Internal Medicine; Referring Provider Obstetrics & Gynecology; Visit Provider Obstetrics & Gynecology
DX: Z12.31 Encounter for screening mammogram for malignant neoplasm of breast (principal)
CPT/HCPCS: 77063; 77067

== ENCOUNTER → 2021-04-28 14:20 | Outpatient (CLI) | payer MEDICAID, SELFPAY ==
--- NOTE | 2021-04-28 14:22 | BI_ITS ---
MAMMOGRAPHY - UNILATERAL DIAGNOSTIC: RIGHT BREAST REASON FOR EXAM: Female, 41 years old. Abnormal screening mammogram. PERTINENT HISTORY: Non-contributory. TECHNIQUE: Compression spot views in the mediolateral oblique and craniocaudad views of the right breast were obtained. CAD: Full Field Digital Mammography with Computer Added Detection was performed. COMPARISON: Comparison is made with prior examination dated 04/21/2021. FINDINGS: Breast Composition: The breasts are heterogeneously dense, which may obscure small masses. The focal area of architectural distortion persists in the slightly upper lateral midportion of the right breast. Correlation with ultrasound is recommended. No other significant abnormalities are identified. BI/DIAG MAMM W/CAD, UNILAT IMPRESSION: The focal area of architectural distortion in the slightly upper lateral midportion of the right breast persists on the compression views. Correlation with ultrasound of the breasts is recommended. ASSESSMENT CATEGORY: BIRADS Category 0: Incomplete. Need additional imaging evaluation. A letter regarding these results will be sent to the patient by the facility within 30 days. Approximately 10% of breast cancers are not detected by mammography. A normal mammogram should not delay biopsy of a clinically suspicious abnormality. Electronically Signed: Shamar Colvin MD at 15:10 EDT , Service support ,
--- NOTE | 2021-04-28 14:22 | US_ITS ---
STUDY: ULTRASOUND BREAST - RIGHT REASON FOR EXAM: Female, 41 years old. Abnormal diagnostic mammogram. TECHNIQUE: Axial and longitudinal images of the RIGHT breast were performed with a high resolution ultrasound transducer. # OF IMAGES: 34 COMPARISON: None. FINDINGS: RIGHT Breast: The lateral half of the right breast was examined by ultrasound. No sonographic abnormality is seen. Routine annual mammographic follow-up is recommended. US/Breast Limited Unilateral IMPRESSION: No sonographic abnormality is seen. ASSESSMENT CATEGORY: BIRADS Category 1: Negative. A letter regarding these results will be sent to the patient by the facility within 30 days. Electronically Signed: Shamar Colvin MD at 15:31 EDT , Service support ,
== END ==
PROVIDERS: PCP Internal Medicine; Referring Provider Obstetrics & Gynecology; Visit Provider Obstetrics & Gynecology
DX: R92.8 Other abnormal and inconclusive findings on diagnostic imaging of breast (principal)
CPT/HCPCS: 76642; 77065

== ENCOUNTER 2021-06-24 15:22 | Emergency (ER) | payer MEDICAID, SELFPAY ==
[2021-06-24 15:23] VITALS: BP 127/84; PULSE 107; RESP 16; TEMP 35.9; O2SAT 96; BMI 39.7
--- NOTE | 2021-06-24 16:08 | EDS_ITS ---
HPI History of Present Illness Chief Complaint: Headache Informant: patient and parent Narrative Narrative: 41-year-old female presents to the emergency room with headache. She states this is been present for 3 days as frontal in nature and also reports discomfort in her neck. She states that she gets migraines has been taking her Imitrex without relief. She states she spoke with her neurologist office and they recommended yesterday she go to emergency she was not getting relief so she went to another facility and they were very busy so she left. They called her again today advised her to come to emergency. She notes some blurry vision of the left eye but no new muscle weakness or sensory changes. No speech difficulties. No recent fevers or illnesses. She also reports that she has bilateral hand and feet swelling. She states that this is been a chronic issue over the past 10 to 11 years. She states that she takes Lasix Bumex and HCTZ. She states that they cannot find a reason for why she has swelling. It does improve with elevation. She notes that she is a smoker but smoking has nothing to do with her symptomology and she will not quit smoking. She tells me she is sick of being sick.- [facility] Medical History (Updated 06/24/21 @ 16:[address] Booker Monroe, DO) ADD (attention deficit disorder) Anxiety Asthma Lymphedema Migraine Seizures Home Medications levothyroxine [Synthroid] 200 mcg PO DAILY 05/26/16 [History Last Taken Unknown] alprazolam 2 mg PO DAILY 04/19/19 [History Last Taken Unknown] cholecalciferol (vitamin D3) 5,000 unit PO DAILY 04/19/19 [History Last Taken Unknown] dextroamphetamine-amphetamine 20 mg PO DAILY PRN 04/19/19 [History Last Taken Unknown] furosemide 20 mg PO DAILY 04/19/19 [History Last Taken Unknown] lamotrigine 150 mg PO BID 04/19/19 [History Last Taken Unknown] fexofenadine 180 mg PO DAILY 12/17/19 [History Last Taken Unknown] sumatriptan succinate 100 mg PO .X1 PRN PRN 12/17/19 [History Last Taken Unknown] Allergy/AdvReac Type Severity Reaction Status Date / Time ketorolac [From Toradol] Allergy Rash Verified 06/24/21 15:23 metoclopramide [From Reglan] Allergy Other Verified 06/24/21 15:23 prochlorperazine Allergy Rash Verified 06/24/21 15:23 [From Compazine] promethazine [From Phenergan] Allergy Other Verified 06/24/21 15:23 Sulfa (Sulfonamide Allergy Rash Verified 06/24/21 15:23 Antibiotics) NSAIDS (Non-Steroidal AdvReac Upset Verified 06/24/21 15:23 Anti-Inflamma Stomach Social History (Updated 06/24/21 @ 16:[address] Booker Monroe, DO) Smoking Status: Current every day smoker substance use type: does not use ROS ROS ED Constitutional Constitutional ED: Denies chills or weight loss Eyes Eyes: Reports blurry vision left; Denies change in vision or diplopia ENT ENT ED: Denies ear pain, rhinorrhea or sore throat Cardiovascular Cardiovascular: Denies chest pain, orthopnea, palpitations or racing heartbeat Respiratory/Chest Respiratory/Chest: Denies cough, dyspnea or orthopnea Gastrointestinal Gastrointestinal: Denies abdominal pain, diarrhea, nausea or vomiting Genitourinary Genitourinary ED: Denies dysuria, hematuria or urinary frequency Musculoskeletal Musculoskeletal: Reports neck pain; Denies arthralgias or myalgias Integumentary Denies abscess or rash Neurologic Neurologic: Reports headache(s); Denies weakness Psychiatric Psychiatric: Denies anxiety, depression, suicidal ideation or suicidal thoughts Endocrine Endocrinology: Denies polydipsia, polyphagia or polyuria Allergic/Immunologic Allergic/Immunologic ED: Denies mouth swelling, tongue swelling or urticaria EXAM Physical Exam Const Vital Signs: 06/24/21 15:23 Temperature 96.6 F L Temperature Source Temporal Pulse Rate 107 H Respiratory Rate 16 Blood Pressure 127/84 H Blood Pressure Mean 98 Pulse Ox 96 Oxygen Delivery Method Room Air Positive well nourished, well developed and obese General Appearance ED: well developed Nutritional Appearance: obese HEENT Reports normocephalic, head/scalp atraumatic and moist mucous membranes Eyes PERRL and EOMs intact bilaterally Neck no lymphadenopathy, supple and no JVD Neck Narrative: No meningitic signs Resp normal respiratory effort and clear to auscultation bilaterally Cardio regular rate, regular rhythm and no murmurs GI normal to inspection, nondistended, normoactive bowel sounds and non-tender Palpation: soft Back/Spine no CVA tenderness and normal ROM Extremity normal to inspection Extremity Narrative: There is mild swelling of the feet bilateral hands. General Extremety ED: Yes edema General Extremity: edema Neuro oriented x3 and CN's II-XII intact bilaterally Sensorium / Orientation: alert Motor Exam: strength 5/5 throughout Psych mental status grossly normal Mood & Affect: Negative for depressed or tearful Skin no rashes or lesions noted and no wounds MDM MDM MDM Narrative Medical decision making narrative: Due to the patient's medication allergies, DHE was ordered for the treatment of migraine. Patient informed nursing that she does not know what that medication is but knows that it will not help her. The patient at this time is choosing to leave the emergency department on her own accord. Discharge Plan Triage Chief Complaint: Headache ED Provider: Booker Monroe Dx/Rx/DC Orders Clinical Impression: Headache, Lymphedema Instructions: ED Headache Unspecified Prescriptions: No Action levothyroxine [Synthroid] 200 MCG tablet 200 mcg PO DAILY RF: 0 lamotrigine 150 MG tablet 150 mg PO BID RF: 0 dextroamphetamine-amphetamine 20 MG tablet 20 mg PO DAILY PRN (Reason: edema) RF: 0 furosemide 20 MG tablet 20 mg PO DAILY RF: 0 alprazolam 2 MG tablet 2 mg PO DAILY RF: 0 cholecalciferol (vitamin D3) 5,000 UNIT capsule 5,000 unit PO DAILY RF: 0 sumatriptan succinate 100 MG tablet 100 mg PO .X1 PRN PRN (Reason: Headache) RF: 0 fexofenadine 180 MG tablet 180 mg PO DAILY RF: 0 Primary Care Provider: Michelle Serrano Referrals: Michelle Serrano MD [Primary Care Provider] - As soon as possible Disposition Disposition: Against Medical Advice
--- NOTE | 2021-06-24 16:27 | ED.RN ---
PT REFUSED PAIN MEDICATION FOR HEADACHE. SHE REPORTS THAT IS NOT THE MEDICATION SHE WANTED, SHE WANTED HER IV OUT AND SHE WAS GOING HOME. REMOVED IV, INFORMED DR. ADAME.
== END 2021-06-24 16:30 | disposition left against medical advice (07) ==
PROVIDERS: Emergency Provider Emergency Medicine; PCP Internal Medicine
DX: R51.9 Headache, unspecified (principal); I89.0 Lymphedema, not elsewhere classified; G40.909 Epilepsy, unspecified, not intractable, without status epilepticus; F41.9 Anxiety disorder, unspecified; E66.9 Obesity, unspecified; Z68.39 Body mass index [BMI] 39.0-39.9, adult; F17.200 Nicotine dependence, unspecified, uncomplicated; Z79.899 Other long term (current) drug therapy; Z53.29 Procedure and treatment not carried out because of patient's decision for other reasons
CPT/HCPCS: 99283; A4216; J1110